=== PATIENT | male | born 1955 | race Caucasian/White ===

== ENCOUNTER 2019-01-06 06:32 | Day surgery (SDC) | payer MEDICARE ==
[~2019-01-06] VITALS: Ht 188 cm; Wt 100.0 kg
[2019-01-06] MEDS ORDERED: DUTA0.5C PO (06:57)
[2019-01-06] MEDS ORDERED: LOSA50TA14 PO (06:57)
[2019-01-06] MEDS ORDERED: LYCO10CA PO (06:59)
[2019-01-06] MEDS ORDERED: SAW450CA7 PO (06:59)
[2019-01-06] MEDS ORDERED: SELE200T10 PO (06:59)
[2019-01-06 07:12] VITALS: BP 184/99
[2019-01-06] MEDS ORDERED: LACTATED RINGERS 1,000 ML IV SCH (07:24)
[2019-01-06] MEDS ORDERED: PROPOFOL 100 ML ONE (07:55)
[2019-01-06] MEDS ORDERED: FENTANYL PF 100 MCG/2ML ONE (07:56)
[2019-01-06] MEDS ORDERED: HYDROmorphone 2 MG/ML, 1ML IVPush PRN (08:30)
[2019-01-06] MEDS ORDERED: ACETAMINOPHEN 325 MG TABLET PO PRN (08:30)
[2019-01-06] MEDS ORDERED: ONDANSETRON ODT 8 MG PO PRN (08:30)
[2019-01-06] MEDS ORDERED: ONDANSETRON 2MG/ML, 2ML IV PRN (08:30)
[2019-01-06] MEDS ORDERED: OXYcodone 5 MG/5 ML ORAL.SOL UDC PO PRN (08:30)
[2019-01-06] MEDS ORDERED: FENTANYL PF 100 MCG/2ML IV PRN (08:30)
== END 2019-01-06 10:05 | disposition home or self-care (01) ==
LOC: OUT 06:32
PROVIDERS: ATTEND Urology
DX: Z46.6 Encounter for fitting and adjustment of urinary device (principal); I10 Essential (primary) hypertension; Z87.442 Personal history of urinary calculi
CPT/HCPCS: 52310; 74018; 76000; C1769; J2704; J3010; J7120